=== PATIENT | female | born 1990 | race Caucasian/White ===

== ENCOUNTER 2023-02-04 05:55 | Emergency (ER) | payer OTHER ==
[2023-02-04 06:04] VITALS: RESP 18; BMI 25.3
[2023-02-04] MEDS ORDERED: DEXAMETHASONE SOD PHOSPHATE 10 MG/1 ML VIAL IM ONE (07:36)
[2023-02-04] MEDS ORDERED: KETOROLAC TROMETHAMINE 30 MG/1 ML VIAL IM ONE (07:36)
[2023-02-04] MEDS ORDERED: AMOXICILLIN 500 MG CAPSULE (FP) PO ONE (07:37)
[2023-02-04] MEDS ORDERED: AMOXICILLIN 500 MG CAPSULE (FP) ONE (07:49)
[2023-02-04] MEDS ORDERED: KETOROLAC TROMETHAMINE 30 MG/1 ML VIAL ONE (07:49)
[2023-02-04] MEDS ORDERED: DEXAMETHASONE SOD PHOSPHATE 4 MG/1 ML VIAL ONE (07:49)
[2023-02-04 08:11] VITALS: BP 117/68; PULSE 100; TEMP 98.5
== END 2023-02-04 08:12 | disposition home or self-care (01) ==
LOC: JER 05:55
PROC: 3E023GC Introduction of Other Therapeutic Substance into Muscle, Percutaneous Approach (ICD-10-PCS; principal; 2023-02-04)
PROC: 3E0233Z Introduction of Anti-inflammatory into Muscle, Percutaneous Approach (ICD-10-PCS; 2023-02-04)
DX: R07.0 Pain in throat (principal); R50.9 Fever, unspecified; R13.10 Dysphagia, unspecified; J02.0 Streptococcal pharyngitis; Z20.822 Contact with and (suspected) exposure to COVID-19
CPT/HCPCS: 0241U-QW; 87651; 99284-25; J1100

== ENCOUNTER 2023-07-30 21:46 | Emergency (ER) | payer OTHER ==
[2023-07-30 21:50] VITALS: BP 110/65; PULSE 86; RESP 18; TEMP 98.6; BMI 28.0
[2023-07-30 22:53] LABS: THROAT:GRP A STREP NOT DETECTED (NOTDETECTED)
[2023-07-30] MEDS ORDERED: OSELTAMIVIR PHOSPHATE 75 MG CAPSULE PO ONE (23:20)
[2023-07-30] MEDS ORDERED: IBUPROFEN 400 MG TABLET (FP) PO ONE ×2 (23:21→23:27)
[2023-07-30] MEDS ORDERED: OSELTAMIVIR PHOSPHATE 75 MG CAPSULE ONE (23:30)
== END 2023-07-30 23:33 | disposition home or self-care (01) ==
LOC: JERFT 21:46
DX: J11.1 Influenza due to unidentified influenza virus with other respiratory manifestations (principal); R07.0 Pain in throat; R49.0 Dysphonia; R09.81 Nasal congestion; R05.9 Cough, unspecified; M79.10 Myalgia, unspecified site; Z20.822 Contact with and (suspected) exposure to COVID-19
CPT/HCPCS: 0241U-QW; 87651; 99283-25

== ENCOUNTER 2023-08-01 06:19 | Emergency (ER) | payer OTHER ==
[2023-08-01 06:26] VITALS: BP 116/81; PULSE 90; RESP 20; TEMP 98.5; BMI 26.5
[2023-08-01] MEDS ORDERED: KETOROLAC TROMETHAMINE 30 MG/1 ML VIAL IM ONE (07:33)
[2023-08-01] MEDS ORDERED: KETOROLAC TROMETHAMINE 30 MG/1 ML VIAL ONE (07:44)
== END 2023-08-01 07:53 | disposition home or self-care (01) ==
LOC: JER 06:19
PROC: 3E0233Z Introduction of Anti-inflammatory into Muscle, Percutaneous Approach (ICD-10-PCS; principal; 2023-08-01)
DX: J02.9 Acute pharyngitis, unspecified (principal); M79.10 Myalgia, unspecified site; R05.9 Cough, unspecified; J32.9 Chronic sinusitis, unspecified
CPT/HCPCS: 99284-25

== ENCOUNTER 2024-07-02 22:57 | Emergency (ER) | payer OTHER ==
[2024-07-02 23:13] VITALS: BP 138/62; PULSE 52; RESP 18; TEMP 97.9; BMI 26.6
[2024-07-03] MEDS ORDERED: ACETAMINOPHEN 325 MG TABLET (FP) ONE (00:20)
[2024-07-03] MEDS: ACETAMINOPHEN 500 MG TABLET (FP) PO ONE (00:23)
== END 2024-07-03 02:24 | disposition home or self-care (01) ==
LOC: JER 22:57
DX: M54.2 Cervicalgia (principal); R51.9 Headache, unspecified; V59.50XA Passenger in pick-up truck or van injured in collision with unspecified motor vehicles in traffic accident, initial encounter
CPT/HCPCS: 70450-TC; 72125-TC; 84703; 99284-25